=== PATIENT | female | born 1950 | race Asian ===

== ENCOUNTER 2024-06-13 21:19 | Emergency (ER) | payer OTHER ==
[2024-06-13 21:31] VITALS: BMI 21.5
[2024-06-13 23:00] LABS: BASO % 1.2 % (0-2.0); EOS % 4.3 % (0-4.5); HEMATOCRIT 32.4 % (32.4-45.2); HEMOGLOBIN 10.4 GM/dL (10.7-15.3); LYMPH % 18.4 % (8-40); MCH 20.7 pg (25.7-33.7); MCHC 32.2 g/dl (32.0-36.0); MEAN CELL VOLUME 64.2 fl (80-96); MEAN PLT VOLUME 8.6 fl (7.5-11.1); MONO % 9.1 % (3.8-10.2); PLATELET COUNT 341 10^3/uL (134-434); RBC 5.04 M/mm3 (3.60-5.2); RDW 15.4 % (11.6-15.6); WHITE BLOOD COUNT 8.3 K/mm3 (4.0-10.0)
[2024-06-13] MEDS: LIDOCAINE PATCH REMOVAL MC SCH (23:04)
[2024-06-13] MEDS: LIDOCAINE 4% PATCH TP ONE (23:04)
[2024-06-13] MEDS: ACETAMINOPHEN 1000 MG/100 ML BAG IVPB ONE (23:04)
[2024-06-13 23:07] LABS: INR 0.96 (0.83-1.09); PROTHROMBIN TIME (PATIENT) 11.1 SEC (9.7-13.0)
[2024-06-13 23:09] LABS: ACTIVATED PTT 32.2 SECONDS (25.2-36.5)
[2024-06-13 23:21] LABS: POTASSIUM 4.4 mmol/L (3.5-5.1)
[2024-06-13 23:24] LABS: ALBUMIN 3.7 g/dl (3.4-5.0); BLOOD UREA NITROGEN 22.3 mg/dL (7-18); CALCIUM 9.9 mg/dL (8.5-10.1)
[2024-06-13 23:27] LABS: CREATININE 0.8 mg/dL (0.55-1.3)
[2024-06-13 23:29] LABS: BILIRUBIN,TOTAL 0.3 mg/dL (0.2-1); TOT PROT 6.7 g/dl (6.4-8.2)
[2024-06-13 23:41] LABS: PH,URINE 5.5 (5.0-8.0); URINE APPEARANCE CLEAR; URINE BILIRUBIN NEGATIVE (NEGATIVE); URINE COLOR YELLOW; URINE GLUCOSE (UA) NEGATIVE (NEGATIVE); URINE KETONE NEGATIVE (NEGATIVE); URINE LEUK ESTERASE NEGATIVE (NEGATIVE); URINE NITRITE NEGATIVE (NEGATIVE); URINE PROTEIN NEGATIVE (NEGATIVE); URINE UROBILINOGEN 0.2 mg/dL (0.2-1.0)
[2024-06-14 00:18] LABS: OVALOCYTE 1+; TEAR DROP CELLS 1+
[2024-06-14 00:19] LABS: ANISOCYTOSIS 2+; PLATELET ESTIMATE ADEQUATE
[2024-06-14 03:21] VITALS: BP 126/56; PULSE 64; RESP 16; TEMP 97.5
== END 2024-06-14 03:42 | disposition home or self-care (01) ==
LOC: JER 21:19
PROC: 3E033NZ Introduction of Analgesics, Hypnotics, Sedatives into Peripheral Vein, Percutaneous Approach (ICD-10-PCS; principal; 2024-06-13)
DX: S30.811A Abrasion of abdominal wall, initial encounter (principal); M54.50 Low back pain, unspecified; K83.8 Other specified diseases of biliary tract; W19.XXXA Unspecified fall, initial encounter
CPT/HCPCS: 36415; 71045-TC-FY; 71111-TC-FY; 72170-TC-FY; 74177-TC; 80053; 81003; 84484; 85025; 85610; 85730; 86850; 86900; 86901; 87086; 93005; 93010; 99285-25; J0131

== ENCOUNTER 2025-01-05 15:01 | Observation (INO) | payer OTHER ==
[2025-01-05 15:24] VITALS: BMI 22.8
[2025-01-05] MEDS ORDERED: LIDOCAINE 4% PATCH TP ONE (16:06)
[2025-01-05] MEDS ORDERED: ACETAMINOPHEN INJECTION 100 ML ONE (16:06)
[2025-01-05] MEDS: ACETAMINOPHEN 1000 MG/100 ML BAG IVPB ONE (16:23)
[2025-01-05] MEDS: SODIUM CHLORIDE 0.9% 500 ML INFUS.BAG IV ONE (16:24)
[2025-01-05] MEDS: LIDOCAINE 5% TOPICAL PATCH TP ONE (16:25)
[2025-01-05 16:26] LABS: HEMATOCRIT 32.6 % (32.4-45.2); HEMOGLOBIN 10.2 GM/dL (10.7-15.3); MCH 20.1 pg (25.7-33.7); MCHC 31.2 g/dl (32.0-36.0); MEAN CELL VOLUME 64.3 fl (80-96); MEAN PLT VOLUME 8.8 fl (7.5-11.1); PLATELET COUNT 203 10^3/uL (134-434); RBC 5.07 M/mm3 (3.60-5.2); RDW 15.4 % (11.6-15.6); WHITE BLOOD COUNT 19.6 K/mm3 (4.0-10.0)
[2025-01-05 17:00] LABS: POTASSIUM 4.8 mmol/L (3.5-5.1)
[2025-01-05 17:02] LABS: BLOOD UREA NITROGEN 24.8 mg/dL (7-18); CALCIUM 8.7 mg/dL (8.5-10.1)
[2025-01-05 17:06] LABS: CREATININE 0.9 mg/dL (0.55-1.3)
[2025-01-05 17:07] LABS: BILIRUBIN,TOTAL 0.8 mg/dL (0.2-1); TOT PROT 6.3 g/dl (6.4-8.2)
[2025-01-05 17:46] LABS: ERYTHROCYTE SEDIMENTATION RATE 26 mm/hr (0-30)
[2025-01-05 18:21] LABS: ANISOCYTOSIS 1+; MACROCYTOSIS 1+
[2025-01-05] MEDS ORDERED: PIPERACILLIN/TAZOB 3.375 GM 3.375 GM/50 ML BAG IVPB ONE (18:25)
[2025-01-05] MEDS ORDERED: morphine SULFATE 4 MG/ML VIAL ONE (19:42)
[2025-01-05] MEDS: PIPERACILLIN/TAZOB 3.375 GM 3.375 GM in DEXTROSE 5%-WATER - 50 ML IVPB ONE (20:00)
[2025-01-05] MEDS: morphine CARPU-JECT 4 MG/1 ML DISP.SYRIN IVPUSH ONE (20:00)
[2025-01-05] MEDS: LIDOCAINE PATCH REMOVAL MC SCH (22:09)
[2025-01-06 01:43] LABS: URINE APPEARANCE CLOUDY; URINE BILIRUBIN NEGATIVE (NEGATIVE); URINE COLOR YELLOW; URINE GLUCOSE (UA) NEGATIVE (NEGATIVE); URINE KETONE TRACE (NEGATIVE)
[2025-01-06 01:44] LABS: EPI CELLS 1.7 /uL (0-25.1); PH,URINE 5.5 (5.0-8.0); URINE LEUK ESTERASE NEGATIVE (NEGATIVE); URINE NITRITE NEGATIVE (NEGATIVE); URINE PROTEIN TRACE (NEGATIVE); URINE RBC 63.5 /uL (0-23.9); URINE UROBILINOGEN 0.2 mg/dL (0.2-1.0); URINE WBC 4.9 /uL (0-25.8)
[2025-01-06 01:45] LABS: HYALINE CASTS 0.13 /uL (0-3.1); URINE BACTERIA 5.6 /uL (0-1359)
[2025-01-06] MEDS: SODIUM CHLORIDE 1,000 ML IV STA (02:24)
[2025-01-06] MEDS ORDERED: DEXTROSE 50%-WATER - 25 GM/50 ML VIAL IVPUSH PRN (02:35)
[2025-01-06] MEDS ORDERED: CEFEPIME HCL/D5W 2 GM/50 ML BAG IVPB ONE ×2 (03:15→09:17)
[2025-01-06] MEDS: CEFEPIME HCL 1 GM VIAL (RESTRICTED TO ID) IVPB SCH (03:15)
[2025-01-06] MEDS ORDERED: VANCOMYCIN 1 GM PREMIX (F) 1 GM/200 ML BAG ONE (04:13)
[2025-01-06] MEDS: VANCOMYCIN 1 GM PREMIX (F) 1 GM/200 ML BAG IVPB ONE (04:14)
[2025-01-06 07:12] LABS: ACTIVATED PTT 28.8 SECONDS (25.2-36.5); INR 1.25 (0.83-1.09); PROTHROMBIN TIME (PATIENT) 13.7 SEC (9.7-13.0)
[2025-01-06] MEDS: INSULIN ASPART SLIDING SCALE (NOVOLOG) 1 VIAL SQ SCH ×2 (07:51→16:37)
[2025-01-06] MEDS ORDERED: HEPARIN NA (PORCINE) 5,000 UNITS/ML 1ML VIAL ONE (09:17)
[2025-01-06] MEDS: HEPARIN NA (PORCINE) 5,000 UNITS/ML 1ML VIAL SQ SCH (09:26)
[2025-01-06] MEDS ORDERED: CEFEPIME HCL 1 GM VIAL (RESTRICTED TO ID) IVPB SCH (10:00)
[2025-01-06] MEDS ORDERED: ENOXAPARIN NA (PORCINE) 40 MG/0.4 ML DISP.SYRIN SQ SCH (10:00)
[2025-01-06] MEDS ORDERED: CEFEPIME HCL/D5W 2 GM/50 ML PREMIX IVPB SCH (22:00)
[2025-01-06] MEDS: CEFEPIME HCL/D5W 2 GM/50 ML BAG IVPB SCH (22:20)
[2025-01-07 07:33] LABS: HEMATOCRIT 31.9 % (32.4-45.2); HEMOGLOBIN 9.8 GM/dL (10.7-15.3); MCH 20.1 pg (25.7-33.7); MCHC 30.9 g/dl (32.0-36.0); MEAN CELL VOLUME 64.9 fl (80-96); MEAN PLT VOLUME 9.6 fl (7.5-11.1); PLATELET COUNT 178 10^3/uL (134-434); RBC 4.91 M/mm3 (3.60-5.2); RDW 15.6 % (11.6-15.6)
[2025-01-07 07:34] LABS: POTASSIUM 3.8 mmol/L (3.5-5.1)
[2025-01-07 07:52] LABS: CALCIUM 8.9 mg/dL (8.5-10.1)
[2025-01-07 07:53] LABS: ALBUMIN 2.7 g/dl (3.4-5.0)
[2025-01-07 07:55] LABS: CREATININE 0.6 mg/dL (0.55-1.3); MAGNESIUM 2.1 mg/dL (1.8-2.4)
[2025-01-07 07:57] LABS: BILIRUBIN,TOTAL 0.3 mg/dL (0.2-1); TOT PROT 5.7 g/dl (6.4-8.2)
[2025-01-07] MEDS: LOSARTAN POTASSIUM 50 MG TABLET PO SCH (10:32)
[2025-01-07] MEDS: amLODIPine BESYLATE 2.5 MG TABLET (FP) PO SCH (22:08)
[2025-01-07] MEDS: ROSUVASTATIN CA 10 MG TABLET PO SCH (22:08)
[2025-01-08 07:16] LABS: HEMATOCRIT 34.1 % (32.4-45.2); HEMOGLOBIN 10.8 GM/dL (10.7-15.3); MCH 20.3 pg (25.7-33.7); MCHC 31.8 g/dl (32.0-36.0); MEAN PLT VOLUME 8.9 fl (7.5-11.1); PLATELET COUNT 207 10^3/uL (134-434); RBC 5.33 M/mm3 (3.60-5.2); RDW 15.7 % (11.6-15.6); WHITE BLOOD COUNT 9.7 K/mm3 (4.0-10.0)
[2025-01-08 07:33] LABS: POTASSIUM 3.8 mmol/L (3.5-5.1)
[2025-01-08 07:35] LABS: BLOOD UREA NITROGEN 16.2 mg/dL (7-18); CALCIUM 8.7 mg/dL (8.5-10.1); MAGNESIUM 2.1 mg/dL (1.8-2.4)
[2025-01-08 07:36] LABS: ALBUMIN 2.8 g/dl (3.4-5.0)
[2025-01-08 07:39] LABS: CREATININE 0.6 mg/dL (0.55-1.3); PHOSPHOROUS 4.2 mg/dL (2.5-4.9)
[2025-01-08 07:41] LABS: BILIRUBIN,TOTAL 0.4 mg/dL (0.2-1)
[2025-01-08] MEDS: guaiFENesin 200 MG/10 ML 10 ML UNIT-DOSE CUPS PO ONE (18:35)
[2025-01-08] MEDS: CEFEPIME HCL/D5W 2 GM/50 ML PREMIX IVPB SCH (18:39)
[2025-01-08] MEDS: guaiFENesin 200 MG/10 ML 10 ML UNIT-DOSE CUPS PO PRN (21:56)
[2025-01-09 07:50] LABS: HEMATOCRIT 32.4 % (32.4-45.2); HEMOGLOBIN 10.6 GM/dL (10.7-15.3); MCH 20.6 pg (25.7-33.7); MCHC 32.7 g/dl (32.0-36.0); MEAN CELL VOLUME 62.9 fl (80-96); PLATELET COUNT 257 10^3/uL (134-434); RBC 5.15 M/mm3 (3.60-5.2); RDW 15.2 % (11.6-15.6); WHITE BLOOD COUNT 7.5 K/mm3 (4.0-10.0)
[2025-01-09 08:10] LABS: POTASSIUM 3.9 mmol/L (3.5-5.1)
[2025-01-09 08:21] LABS: BLOOD UREA NITROGEN 14.6 mg/dL (7-18); CALCIUM 8.7 mg/dL (8.5-10.1)
[2025-01-09 08:23] LABS: CREATININE 0.6 mg/dL (0.55-1.3)
[2025-01-09 10:18] LABS: ANISOCYTOSIS 2+
[2025-01-09] MEDS: FLUTICASONE PROP 0.05% 16 GM NASAL SPRAY NS SCH ×2 (14:56→23:56)
[2025-01-09] MEDS: LORATADINE 10 MG TABLET PO SCH (14:57)
[2025-01-09] MEDS: amLODIPine BESYLATE 2.5 MG TABLET (FP) PO SCH (16:24)
[2025-01-09] MEDS: LOSARTAN POTASSIUM 50 MG TABLET PO SCH (16:24)
[2025-01-09] MEDS ORDERED: guaiFENesin 200 MG/10 ML 10 ML UNIT-DOSE CUPS PO PRN (18:40)
[2025-01-09] MEDS ORDERED: DEXTROSE 50%-WATER 25 GM/50 ML DISP.SYRIN IVPUSH PRN (18:40)
[2025-01-09 18:55] VITALS: RESP 18
[2025-01-09] MEDS: HEPARIN NA (PORCINE) 5,000 UNITS/ML 1ML VIAL SQ SCH (22:05)
[2025-01-09] MEDS: BENZOCAINE/MENTH/CETYLPYRD CL 1 EACH LOZENGE MM PRN (22:10)
[2025-01-10] MEDS: INSULIN ASPART SLIDING SCALE (NOVOLOG) 1 VIAL SQ SCH (06:33)
[2025-01-10] MEDS: LORATADINE 10 MG TABLET PO SCH (09:19)
[2025-01-10 09:25] LABS: HEMATOCRIT 35.6 % (32.4-45.2); MCHC 30.8 g/dl (32.0-36.0); MEAN CELL VOLUME 64.6 fl (80-96); MEAN PLT VOLUME 9.2 fl (7.5-11.1); PLATELET COUNT 318 10^3/uL (134-434); RBC 5.52 M/mm3 (3.60-5.2); RDW 15.3 % (11.6-15.6); WHITE BLOOD COUNT 6.6 K/mm3 (4.0-10.0)
[2025-01-10 09:29] LABS: MCH 19.9 pg (25.7-33.7)
[2025-01-10 09:41] LABS: POTASSIUM 4.1 mmol/L (3.5-5.1)
[2025-01-10 10:10] LABS: CALCIUM 9.2 mg/dL (8.5-10.1)
[2025-01-10 10:11] LABS: BLOOD UREA NITROGEN 16.9 mg/dL (7-18)
[2025-01-10 10:14] LABS: CREATININE 0.7 mg/dL (0.55-1.3)
[2025-01-10 11:00] VITALS: TEMP 98.4
[2025-01-10] MEDS: OSELTAMIVIR PHOSPHATE 75 MG CAPSULE PO ONE (13:49)
[2025-01-10 14:56] VITALS: BP 124/66; PULSE 86
[2025-01-11] MEDS ORDERED: OSELTAMIVIR PHOSPHATE 30 MG CAPSULE PO SCH (10:00)
== END 2025-01-10 17:25 | disposition short-term general hospital (02) ==
LOC: JER 15:01 → JERBED 01-06 01:11 → J4S 01-06 17:52 → J8W 01-09 17:26
PROVIDERS: ADMIT Student in an Organized Health Care Education/Training Program; ATTEND Internal Medicine
PROC: 3E033NZ Introduction of Analgesics, Hypnotics, Sedatives into Peripheral Vein, Percutaneous Approach (ICD-10-PCS; principal; 2025-01-06)
PROC: 3E03329 Introduction of Other Anti-infective into Peripheral Vein, Percutaneous Approach (ICD-10-PCS; 2025-01-06)
PROC: 3E023GC Introduction of Other Therapeutic Substance into Muscle, Percutaneous Approach (ICD-10-PCS; 2025-01-06)
PROC: 3E0337Z Introduction of Electrolytic and Water Balance Substance into Peripheral Vein, Percutaneous Approach (ICD-10-PCS; 2025-01-06)
DX: M48.00 Spinal stenosis, site unspecified (principal); G95.9 Disease of spinal cord, unspecified; R79.89 Other specified abnormal findings of blood chemistry; R94.5 Abnormal results of liver function studies; E11.9 Type 2 diabetes mellitus without complications; R74.01 Elevation of levels of liver transaminase levels; D50.9 Iron deficiency anemia, unspecified; Z90.49 Acquired absence of other specified parts of digestive tract; I10 Essential (primary) hypertension; D72.829 Elevated white blood cell count, unspecified
CPT/HCPCS: 0241U-QW; 36415; 71275-TC; 72141-TC; 72142-TC; 72146-TC; 72147-TC; 72148-TC; 72149-TC; 74174-TC; 80048; 80053; 81003; 82728; 82962; 83540; 83550; 83605; 83735; 84100; 84484; 85025; 85027; 85045; 85610; 85651; 85730; 86140; 87040; 87086; 93005; 93010; 96361; 96365; 96367; 96372; 96375; 97116-GP; 97161-GP; 99291; G0378; J0131; J1644; Q9967